=== PATIENT | male | born 1965 | race Asian ===

== ENCOUNTER 2022-01-11 10:20 | Outpatient (CLI) | payer BC ==
[2022-01-11 11:39] LABS: Bilirubin Neg (Negative); Blood, Urine Negative (Negative); Clarity Clear (Clear); Glucose, Urine (Dipstick) Normal (Negative); Ketone, Urine 5 mg/dL (Negative); Leukocyte Negative (Negative); Nitrite Negative (Negative); Protein, Urine (Dipstick) Negative (Neg-Trace); Urobilinogen Normal mg/dL (Less than 2); pH, Urine 6.5 (5.0-9.0)
[2022-01-11 11:40] LABS: Hemoglobin 14.1 g/dL (13.5-17.5); Mean Corpuscular HGB CONC 33.9 g/dL (32.0-36.0); Mean Corpuscular Hemoglobin 29.8 pg (27.0-33.0); Mean Corpuscular Volume 87.9 fl (81.2-95.1); Mean Platelet Volume 9.5 fl (7.4-10.4); Platelet Count 231 10x3/uL (150-450); RBC Distribution Width 13.3 % (11.5-14.5); Red Blood Cell (RBC) Count 4.73 10x6/uL (4.32-5.72); White Blood Cell (WBC) Count 5.4 10x3/uL (3.5-10.5)
[2022-01-11 11:54] LABS: Bacteria/HPF None Seen HPF (None Seen); RBC/HPF None Seen HPF (0-3); Squamous Epithelial None Seen HPF (0-3); WBC/HPF None Seen HPF (0-3)
[2022-01-11 12:02] LABS: Anion Gap 16 mmol/L (10-20); BUN (Urea Nitrogen) 12 mg/dL (8.4-25.7); Calc. Creatinine Clearance 0 mL/min (70-130); Calcium 9.2 mg/dL (7.8-10.44); Carbon Dioxide 26 mmol/L (22-29); Chloride 103 mmol/L (98-107); Estimated GFR 103; Glucose 79 mg/dL (70-105); Potassium 4.7 mmol/L (3.5-5.1); Sodium 140 mmol/L (136-145)
== END 2022-01-11 10:21 | disposition home or self-care (01) ==
LOC: LABBT 10:20
PROVIDERS: ATTEND Urology
DX: Z01.818 Encounter for other preprocedural examination (principal); N40.1 Benign prostatic hyperplasia with lower urinary tract symptoms; Z20.822 Contact with and (suspected) exposure to COVID-19
CPT/HCPCS: 80048; 81001; 85027; 87086; 87811; 93005; 93010

== ENCOUNTER 2022-01-16 07:33 | Day surgery (SDC) | payer BC ==
[2022-01-15 11:16] VITALS: BMI 22.8
[2022-01-16] MEDS ORDERED: Levofloxacin 500 mg/D5W 100 ml Premix Bag ONE (10:34)
[2022-01-16] MEDS ORDERED: Fentanyl 100 MCG/2 ML VIAL ONE (11:03)
[2022-01-16] MEDS ORDERED: PROPOFOL 200 MG/20 ML VIAL ONE (11:06)
[2022-01-16] MEDS ORDERED: Lidocaine 1% PF 5 ML VIAL ONE (11:06)
[2022-01-16] MEDS ORDERED: Ketorolac Tromethamine 30 MG/ML VIAL ONE (11:35)
[2022-01-16] MEDS ORDERED: Phenazopyridine HCl 100 MG TAB ONE (11:35)
[2022-01-16] MEDS ORDERED: Oxybutynin 5 MG TAB ONE (11:35)
== END 2022-01-16 12:45 | disposition home or self-care (01) ==
LOC: SDC 07:33
PROVIDERS: ATTEND Urology
PROC: 0T7D8DZ Dilation of Urethra with Intraluminal Device, Via Natural or Artificial Opening Endoscopic (ICD-10-PCS; principal; 2022-01-16)
DX: N40.1 Benign prostatic hyperplasia with lower urinary tract symptoms (principal); N13.8 Other obstructive and reflux uropathy; R35.1 Nocturia; K21.9 Gastro-esophageal reflux disease without esophagitis; Z85.01 Personal history of malignant neoplasm of esophagus; Z79.899 Other long term (current) drug therapy
CPT/HCPCS: J1885; J1956; J2704; J3010; L8699